=== PATIENT | male | born 1970 | race African-American/Black ===

== ENCOUNTER 2019-08-04 18:39 | Observation (INO) | payer OTHER ==
[~2019-08-04 18:39] MED LIST: Iopamidol-370 76% 500 ML 1 ML ONE
[2019-08-04 19:33] LABS: #Lymphocytes 1.1 thou/uL (1.20-3.40); #Monocytes 0.3 thou/uL (0.11-0.59); #Neutrophils 4.6 thou/uL (1.40-6.50); %Basophils 0.3 % (0.0-1.0); %Eosinophils 0.5 % (0.0-10.0); %Lymphocytes 18.5 % (21.0-51.0); %Monocytes 4.8 % (0.0-10.0); %Neutrophils 75.9 % (42.0-75.0); Hemoglobin 8.3 g/dL (14.0-18.0); Mean Corpuscular HGB CONC 27.5 g/dL (32.0-36.0); Mean Corpuscular Volume 91.1 fL (78.0-98.0); Mean Platelet Volume 9.5 fL (7.4-10.4); Platelet Count 151 thou/uL (130-400); RBC Distribution Width 16.1 % (11.5-14.5); Red Blood Cell (RBC) Count 3.31 mill/uL (4.70-6.10)
--- NOTE | 2019-08-04 19:36 | RAD ---
Chest AP view INDICATION: Cough COMPARISON: Chest radiograph dated April 11, 2012 FINDINGS: Lungs: The lungs are clear Cardiac silhouette: The cardiomediastinal silhouette appears within normal limits. Pulmonary vasculature: Normal Pleural spaces: No pleural effusion or pneumothorax is demonstrated. Upper abdomen: No abnormality seen. Osseous structures: No acute osseous abnormality. Additional findings: None. IMPRESSION: No acute cardiopulmonary abnormality.
[2019-08-04 19:44] LABS: Hypochromia SLIGHT = 6-15 cells (100X) (0-5/hpf); MDiff Complete? YES; Platelet Morphology Comment Appears Adequate
[2019-08-04 20:12] LABS: Calcium 10.2 mg/dL (7.8-10.44); Chloride 100 mmol/L (98-107); Potassium 4.7 mmol/L (3.5-5.1)
[2019-08-04 20:13] LABS: Globulin 4.6 g/dL (2.4-3.5); Glucose 79 mg/dL (70-105); Protein, Total 8.6 g/dL (6.0-8.3)
[2019-08-04 20:14] LABS: Anion Gap 15 mmol/L (10-20); Carbon Dioxide 25 mmol/L (22-29)
[2019-08-04 20:15] LABS: Bilirubin, Total 0.6 mg/dL (0.2-1.2)
[2019-08-04 20:16] LABS: Alkaline Phosphatase 91 U/L (40-110); Calc. Creatinine Clearance 0 mL/min (70-130); Estimated GFR-MDRD Greater than 90
--- NOTE | 2019-08-04 20:16 | CT ---
CT ABDOMEN AND PELVIS WITH IV CONTRAST: 08/04/19 PROVIDED CLINICAL HISTORY: Right lower quadrant and left flank pain. FINDINGS: No comparison. The visualized lung bases are free of significant opacity. There is a large mass involving the entirety of the left hepatic lobe, and extending exophytically ca udally. This measures at least 13.8 cm in craniocaudal dimension x at least 12.6 x 6.8 cm in greatest transverse dimensions. There is somewhat less well defined heterogeneous abnormal density present wi thin the medial segments of the left hepatic lobe and anterior segment of the right hepatic lobe. The re are numerous additional hepatic hypodensities involving the right hepatic lobe as well as a hypere nhancing subcentimeter mass involving the right hepatic lobe. The spleen, pancreas, kidneys and adren al glands demonstrate no significant abnormality. Bilateral renal cysts are seen. The pancreatic body is compressed by the left hepatic lobe mass, as are the stomach and duodenum. There is conspicuous mural thickening involving the urinary bladder with surrounding fat stranding an d mucosa enhancement. There is no bowel dilatation, free fluid or free air apparent. The osseous structures demonstrate no concerning lytic or blastic lesions. There is diffuse fatty inf iltration of essentially all the regional musculature. IMPRESSION: 1. Findings compatible with cystitis. 2. Extensive hepatic abnormalities including large dominant exophytic mass involving the left he patic lobe. This demonstrates CT features most suggestive of a large cavernous hemangioma, though the additional abnormalities involving the right hepatic lobe are incompletely characterized on the basi s of this study. Correlation with nonemergent MRI is recommended for further evaluation. POS: MARTA
[2019-08-04 20:17] LABS: BUN (Urea Nitrogen) 13 mg/dL (8.4-25.7)
[2019-08-04 20:18] LABS: AST (SGOT) 29 U/L (5-34)
[2019-08-04 20:19] LABS: ALT (SGPT) 19 U/L (8-55)
[2019-08-04 20:21] LABS: CKMB 16.5 ng/mL (0-6.6)
[2019-08-04 20:47] LABS: Sodium 135 mmol/L (136-145)
[2019-08-04 21:23] LABS: Bacteria/HPF 3+ HPF (None Seen); Bilirubin Negative (Negative); Blood, Urine 2+ (Negative); Clarity Clear (Clear); Glucose, Urine (Dipstick) Normal (Negative); Leukocyte 500 Leu/uL (Negative); Nitrite Negative (Negative); Protein, Urine (Dipstick) 20 mg/dL (Neg-Trace); RBC/HPF 21-50 HPF (0-3); Squamous Epithelial 0-3 HPF (0-3); WBC/HPF Greater than 50 HPF (0-3)
[2019-08-04 21:25] LABS: Sperm/HPF Rare HPF (None Seen)
[2019-08-04] MEDS ORDERED: Aspirin Chewable 81 MG TAB ONE (21:54)
[2019-08-04 23:08] LABS: Troponin I 0.041 ng/mL (< 0.028)
[2019-08-05 01:34] LABS: Troponin I 0.032 ng/mL (< 0.028)
[2019-08-05 04:06] VITALS: BMI 25.8
[2019-08-05 13:03] LABS: #Lymphocytes 1.3 thou/uL (1.20-3.40); #Monocytes 0.3 thou/uL (0.11-0.59); #Neutrophils 5.4 thou/uL (1.40-6.50); %Basophils 0.2 % (0.0-1.0); %Eosinophils 0.6 % (0.0-10.0); %Lymphocytes 18.8 % (21.0-51.0); %Monocytes 4.6 % (0.0-10.0); %Neutrophils 75.8 % (42.0-75.0); Mean Corpuscular HGB CONC 32.8 g/dL (32.0-36.0); Mean Corpuscular Hemoglobin 29.3 pg (27.0-31.0); Mean Corpuscular Volume 89.4 fL (78.0-98.0); Mean Platelet Volume 7.9 fL (7.4-10.4); Platelet Count 202 thou/uL (130-400); RBC Distribution Width 12.9 % (11.5-14.5); Red Blood Cell (RBC) Count 4.45 mill/uL (4.70-6.10); White Blood Cell (WBC) Count 7.1 thou/uL (4.8-10.8)
[2019-08-05 13:15] LABS: Iron 54 ug/dL (65-175); Iron Binding Capacity, Total 210 mcg/dL (261-462)
[2019-08-05 14:24] LABS: Hemoglobin 12.8 g/dL (14.0-18.0)
[2019-08-05] MEDS ORDERED: FLU VACC QS2019-20(6MOS UP)/PF 60 MCG/0.5 ML SYRINGE IM ONE (21:00)
--- NOTE | 2019-08-05 21:42 | HP ---
CHIEF COMPLAINT: Right lower quadrant flank pain. HISTORY OF PRESENT ILLNESS: Mr. Clayton is a 49-year-old male with past medical history of muscular dystrophy, non-ambulatory, came because of right flank pain and right lower abdominal pain started acutely. He did not have any nausea or vomiting. No fever. No headache. No dizziness. The patient is nonambulatory. The last time he came to see me was a year ago. He is not on any medications. The patient also noticed some dark urine as well. The patient came to the emergency room because of this pain and he was found to have urinary tract infection, possible cystitis, and also had a CAT scan done of the abdomen, which revealed possible mass in the left lobe of liver and some abnormality in the right lobe as well. The patient did complain of some pain in the left flank also. The patient was started on antibiotic and Levaquin and admitted for further evaluation and management. The patient was found to be anemic on initial CBC. PAST MEDICAL HISTORY: 1. Muscular dystrophy. 2. History of cerebrovascular accident. 3. The patient is nonambulatory. PAST SURGICAL HISTORY: Status post tonsillectomy. CURRENT MEDICATIONS: None. ALLERGIES: NKDA. FAMILY HISTORY: Nothing contributory. SOCIAL HISTORY: The patient lives with family. No history of smoking. No history of alcohol. REVIEW OF SYSTEMS: CARDIOVASCULAR: No chest pain. No shortness of breath. RESPIRATORY: No fever or cough. GASTROINTESTINAL: Has abdominal pain right lower quadrant as well as left flank pain. CENTRAL NERVOUS SYSTEM: No headache. No dizziness. PHYSICAL EXAMINATION: GENERAL: The patient is alert, awake, oriented x3. VITAL SIGNS: Temperature 98, pulse 80, respirations 20, blood pressure 100/60. HEENT: Head is normocephalic, atraumatic. Pupils equal and reactive. Nasopharynx is pale and dry. NECK: Supple. No JVD. LUNGS: Bilateral air entry present. No rales, no rhonchi. HEART: S1, S2. Regular. ABDOMEN: Soft, tenderness present. Right lower quadrant area. No guarding. No rigidity. Bowel sounds present. RECTAL: Deferred. CENTRAL NERVOUS SYSTEM: No focal deficits. LABORATORY DATA: CBC shows WBC 6, hemoglobin 8.3, hematocrit 30, platelets 151. Metabolic panel; sodium 135, potassium 4.7, chloride 100, CO2 of 25, urea nitrogen 13, creatinine 0,9, glucose 79. Troponin I 0.031. Urinalysis showed wbc's greater than 15, bacteria 3+. EKG shows normal sinus rhythm, no acute ST-T changes seen. ASSESSMENT: 1. Right lower quadrant pain. 2. Possible cystitis. 3. Left flank pain. 4. Questionable anemia. 5. Liver mass. 6. Elevated troponin rule out myocardial infarction. 7. History of muscular dystrophy. 8. History of cerebrovascular accident. PLAN: 1. Vital signs q.4 hours. 2. Activities, as tolerated. 3. Allergies, NKDA. 4. Hep-Lock. 5. Levaquin 750 mg IV piggyback daily. 6. We will repeat CBC. 7. Diet, regular. 8. GI consult. Job ID: [id number] [facility]
[2019-08-06 05:07] LABS: Albumin 3.1 g/dL (3.5-5.0); Anion Gap 11 mmol/L (10-20); BUN (Urea Nitrogen) 17 mg/dL (8.4-25.7); Bilirubin, Total 0.3 mg/dL (0.2-1.2); Calc. Creatinine Clearance 158 mL/min (70-130); Calcium 9.4 mg/dL (7.8-10.44); Carbon Dioxide 27 mmol/L (22-29); Chloride 104 mmol/L (98-107); Estimated GFR-MDRD Greater than 90; Globulin 3.9 g/dL (2.4-3.5); Glucose 91 mg/dL (70-105); Potassium 4.6 mmol/L (3.5-5.1); Sodium 137 mmol/L (136-145)
[2019-08-06 05:08] LABS: ALT (SGPT) 14 U/L (8-55); AST (SGOT) 23 U/L (5-34); Alkaline Phosphatase 70 U/L (40-110); Eosinophils 1 % (0-10); Hemoglobin 12.3 g/dL (14.0-18.0); Hypochromia SLIGHT = 6-15 cells (100X) (0-5/hpf); Lymphocytes 18 % (21-51); MDiff Complete? YES; Mean Corpuscular HGB CONC 33.5 g/dL (32.0-36.0); Mean Corpuscular Hemoglobin 29.8 pg (27.0-31.0); Mean Corpuscular Volume 88.9 fL (78.0-98.0); Mean Platelet Volume 8.5 fL (7.4-10.4); Monocytes 5 % (0-10); Neutrophil 76 % (42-75); Platelet Count 185 thou/uL (130-400); Platelet Morphology Comment Appears Adequate; Red Blood Cell (RBC) Count 4.13 mill/uL (4.70-6.10); White Blood Cell (WBC) Count 6.9 thou/uL (4.8-10.8)
--- NOTE | 2019-08-06 09:12 | MRI ---
MRI ABDOMEN WITH AND WITHOUT IV CONTRAST: Date: 08/06/2019 HISTORY: Liver masses. CORRELATION: CT scan of 08/04/2019. FINDINGS: Multiple masses are again seen in the liver. These demonstrate T2 hyperintensity and postcontrast per ipheral nodular enhancement with centripetal filling on delayed images and are consistent with reena iomas. The largest of these has an exophytic component and is in the left lobe of the liver measuring 13.8 cm in largest dimension. Multiple gallstones are seen. The spleen, pancreas, and adrenal glands are normal. There are bilatera l renal cysts with low T1, high T2 signal, and no postcontrast enhancement. No free fluid or lymphade nopathy seen. There is no evidence of aneurysmal dilatation of the abdominal aorta. The bone marrow s ignal is normal. IMPRESSION: 1. Liver hemangiomas. 2. Bilateral renal cysts. 3. Cholelithiasis. POS: MARY KAY
--- NOTE | 2019-08-06 09:37 | CON ---
DATE OF CONSULTATION: 08/05/2019 REASON FOR CONSULTATION: Abnormal CAT scan of abdomen. HISTORY OF PRESENT ILLNESS: Mr. Skyler Clayton is a very pleasant 49-year-old fragile looking male with abnormal C T scan of abdomen. He has known to Dr. Jackson for many years for diagnosis of muscular dystrophy probably about 20+ years ago. He is nonfunctional and nonambulatory. He is basically in a wheelchair. He has weakness of both lower extremities and upper extremities. Also appears to have muscular wasting. The patient came to the ER because of left flank pain and some difficulty with urination. The patient was found to have UTI. Underwent evaluation with abdominal CAT scan. Abdominal CAT scan showed a very large left hepatic lobe mass and also a small lesion in right lobe. It was felt the patient mostly has hemangioma. However, the radiologist recommended MRI for better evaluation. The patient tells me he was in [facility] a year ago with severe UTI. He is having some x-rays of CAT scan done, but nobody ever told him something wrong with the liver. Interestingly, he is totally asymptomatic from a liver lesion. He has no right upper abdominal pain, epigastric abdominal pain, nausea, vomiting. The pain is more over the left flank and states the pain has already gone now. The patient's bowel movements are every other day or every third day. Does not take laxatives. No hematochezia. No melena. At the present time, he appears very comfortable and he states the pain is gone and he is feeling better. No relevant history. MEDICAL ILLNESSES: 1. Muscular dystrophy with weakness of both upper and lower extremities. 2. UTI hospitalized in [facility] in 2019. 3. History of tonsillectomy. No other major surgeries. SOCIAL HISTORY: The patient lives with family in [place]. Does not use drugs. No history of smoking or alcohol intake. 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 ALLERGIES: AMOXICILLIN. REVIEW OF SYSTEMS: Remarkable for abdominal pain and some dysuria. These symptoms have resolved at present time. No right upper quadrant abdominal pain, nausea, vomiting. No hematochezia. No melena. Otherwise, history is unremarkable. PHYSICAL EXAMINATION: GENERAL: Revealed a fragile looking male, appears to have muscle wasting and there is no movement in the upper or lower extremities. His handshake is very feeble. He is not able to move his extremities. Appears comfortable. He is awake, alert, and communicative. VITAL SIGNS: Afebrile. Pulse is 82, blood pressure 110/70. HEENT: Conjunctivae are clear. NECK: Supple. No adenitis or thyromegaly noted. CARDIOVASCULAR SYSTEM: First and second heart sounds heard. LUNGS: Clear to auscultation. ABDOMEN: Soft and nondistended. Abdomen is nontender. I do not feel any liver or any masses or right upper quadrant epigastric area. Bowel sounds are audible. LABORATORY DATA: As mentioned earlier, abdominal CAT scan showed a large hepatic mass and also small lesion in the right lobe of the liver. I discussed the case with Dr. Irene Cho and he feels probably hemangiomas in the left lobe of liver. The right lobe lesion could very well be hemangioma, but he recommend to have an MRI done. CBC; WBC is 6000, hemoglobin 8.3, hematocrit 30.1, MCV 91.1, platelet count 151,000 polymorphs 75, lymphocytes 18, monocytes 4. Chemistry panel; lytes are normal. BUN is 13, creatinine of 0.53, glucose 179, calcium 10.2. Liver function tests; AST is 29, ALT 19, alkaline phosphatase 91. Troponin level is high at 0.031 and also CPK-MB 16.5, albumin 4. CLINICAL IMPRESSION: 1. A 49-year-old unfortunate black male with muscular dystrophy and is quadriplegic. The patient presents with symptoms of urinary tract infection and had abdominal CAT scan. The CAT scan showed a hemangioma and some small lesion in right lobe of the liver. Liver function tests are normal. He has no known symptoms of hemangioma. 2. Muscular dystrophy. 3. History of urinary tract infection. RECOMMENDATION: Obtain MRI tomorrow. His overall clinical status is being poor. I am really not sure he needs any aggressive therapy. He most likely had liver hemangioma, I would probably observe him. However, there is a risk of bleeding from hemangioma. Other option is to get a surgical consult in [place], as outpatient. Job ID: [id number] [facility]
--- NOTE | 2019-08-06 15:10 | PRG ---
DATE OF SERVICE: 08/06/2019 SUBJECTIVE: This is a 49-year-old male who came to the ER with left flank pain and some UTI. He had an abdominal CAT scan, which revealed multiple lesions in the right lobe of the liver and also large hemangioma. He underwent MRI as per the radiologist's recommendation. The MRI confirms these are multiple hemangiomas in the right lobe of the liver and also he had large hemangioma over the left lobe of liver and also gallstone. The gallstone is asymptomatic.. The patient really has no specific GI symptoms. No abdominal pain. No nausea. No vomiting. OBJECTIVE: GENERAL: Appears comfortable. VITAL SIGNS: Stable. Afebrile, pulse is 65, blood pressure is 109/67. CARDIOVASCULAR: Within normal limits. LUNGS: Within normal limits. ABDOMEN: Soft. No organomegaly. No tenderness. IMPRESSION: 1. Multiple hemangiomas of the liver. 2. Gallstone. He has no GI symptoms and no acute GI pathology going on. I will sign off from today. 3. From Gastrointestinal standpoint, the patient can be discharged home. Job ID: [id number] [facility]
[2019-08-06] MEDS: Nitrofurantoin Monohyd/M-Cryst 100 MG CAP PO SCH (21:40)
[2019-08-07] MEDS ORDERED: Docusate 100 MG CAP PO SCH (09:00)
[2019-08-07] MEDS: Nitrofurantoin Monohyd/M-Cryst 100 MG CAP PO SCH (09:06)
[2019-08-07 11:30] VITALS: TEMP 97.7
[2019-08-07 16:38] VITALS: BP 114/75
--- NOTE | 2019-08-11 14:09 | EKG ---
Test Reason : Blood Pressure : / mmHG Vent. Rate : 085 BPM Atrial Rate : 085 BPM P-R Int : 128 ms QRS Dur : 104 ms QT Int : 364 ms P-R-T Axes : 003 038 050 degrees QTc Int : 433 ms Sinus rhythm with marked sinus arrhythmia Minimal voltage criteria for LVH, may be normal variant Nonspecific T wave abnormality Abnormal ECG Confirmed by RONEN SILVA DO ([id number]), video tape editor MARCIA CHAVEZ ([id number]) on 08/11/2019 2:09:33 PM Referred By: Confirmed By:RONEN SILVA DO
== END 2019-08-07 20:27 | disposition home or self-care (01) ==
LOC: ERS 18:39 → INTOOBSV 22:05 → 2SE 22:05
PROVIDERS: ADMIT Internal Medicine; ATTEND Internal Medicine
DX: D18.03 Hemangioma of intra-abdominal structures (principal); K80.20 Calculus of gallbladder without cholecystitis without obstruction; R79.89 Other specified abnormal findings of blood chemistry; Z79.2 Long term (current) use of antibiotics; Z86.73 Personal history of transient ischemic attack (TIA), and cerebral infarction without residual deficits; Z90.89 Acquired absence of other organs; Z79.899 Other long term (current) drug therapy; Z88.0 Allergy status to penicillin
CPT/HCPCS: 36415; 71045; 74177; 74183; 80053; 81003; 81015; 82553; 82728; 83540; 83550; 84484; 85025; 87077; 87086; 87186; 90471; 90686; 93005; 96374; G0008; G0378; J1956; Q9967

== ENCOUNTER 2023-02-28 12:00 | Inpatient (IN) | payer OTHER ==
[~2023-02-28 12:00] MED LIST changes: -Iopamidol-370 76% 500 ML 1 ML ONE; +Iopamidol-370 76% 500 ML MDV (1 ML CHARGE) ONE
[2023-02-28] MEDS ORDERED: Morphine 4 MG/ML VIAL ONE (12:44)
[2023-02-28] MEDS ORDERED: Ondansetron PF 4 MG/2 ML Vial ONE (12:44)
[2023-02-28 12:57] LABS: #Eosinphils 0.1 thou/uL (0.0-0.7); #Monocytes 0.3 thou/uL (0.11-0.59); #Neutrophils 6.4 thou/uL (1.40-6.50); %Basophils 0.2 % (0.0-1.0); %Eosinophils 0.7 % (0.0-10.0); %Lymphocytes 19.4 % (21.0-51.0); %Monocytes 3.8 % (0.0-10.0); %Neutrophils 75.5 % (42.0-75.0); Hematocrit 42.8 % (42.0-52.0); Hemoglobin 14.3 g/dL (14.0-18.0); Mean Corpuscular HGB CONC 33.4 g/dL (32.0-36.0); Mean Corpuscular Hemoglobin 29.4 pg (27.0-31.0); Mean Corpuscular Volume 88.1 fl (78.0-98.0); Mean Platelet Volume 10.7 fL (7.4-10.4); Platelet Count 244 10x3/uL (130-400); RBC Distribution Width 14.4 % (11.5-14.5); Red Blood Cell (RBC) Count 4.86 mill/uL (4.70-6.10); White Blood Cell (WBC) Count 8.4 10x3/uL (4.8-10.8)
[2023-02-28 13:25] LABS: ALT (SGPT) 18 U/L (8-55); AST (SGOT) 20 U/L (5-34); Albumin 3.7 g/dL (3.5-5.0); Alkaline Phosphatase 86 U/L (40-110); Anion Gap 16 mmol/L (10-20); BUN (Urea Nitrogen) 12 mg/dL (8.4-25.7); Bilirubin, Total 0.4 mg/dL (0.2-1.2); Calc. Creatinine Clearance 0 mL/min (70-130); Calcium 10.5 mg/dL (7.8-10.44); Carbon Dioxide 27 mmol/L (22-29); Chloride 101 mmol/L (98-107); Estimated GFR 119; Glucose 88 mg/dL (70-105); Lipase 65 U/L (8-78); Potassium 4.4 mmol/L (3.5-5.1); Protein, Total 8.7 g/dL (6.0-8.3); Sodium 140 mmol/L (136-145)
[2023-02-28 13:39] LABS: Bacteria/HPF 4+ HPF (None Seen); Bilirubin Negative (Negative); Blood, Urine 1+ (Negative); CAUTI Indications for Culture Pelvic or flank pain; Clarity Turbid (Clear); Glucose, Urine (Dipstick) Normal (Negative); Ketone, Urine Negative (Negative); Leukocyte 500 Leu/uL (Negative); Nitrite 2+ (Negative); Protein, Urine (Dipstick) 20 mg/dL (Neg-Trace); Specific Gravity, Urine 1.013 (1.002-1.036); Squamous Epithelial 0-3 HPF (0-3); Urobilinogen Normal mg/dL (Less than 2); WBC/HPF Greater than 50 HPF (0-3)
[2023-02-28 13:45] LABS: Urine Culture Reflex Yes Yes
[2023-02-28] MEDS ORDERED: Acetaminophen 500 MG TAB ONE (14:50)
[2023-02-28] MEDS ORDERED: cefTRIAXone (ROCEPHIN) 2 GM VIAL ONE (14:50)
[2023-02-28] MEDS ORDERED: Ondansetron ODT 4 MG TAB PO PRN (17:18)
[2023-02-28] MEDS ORDERED: Ondansetron PF 4 MG/2 ML Vial IVP PRN (17:18)
[2023-02-28] MEDS ORDERED: Acetaminophen 650 MG Suppository PR PRN (17:18)
[2023-02-28] MEDS ORDERED: Nitroglycerin 0.4 MG TAB (25 Tab Bottle) SL PRN (17:22)
[2023-02-28] MEDS ORDERED: Sodium Chloride 0.9% 1,000 ML IV SCH (17:30)
[2023-02-28] MEDS ORDERED: Electrolyte Replacement Protocol FS SCH (17:30)
[2023-02-28 17:36] LABS: Lactic Acid 2.4 mmol/L (0.5-2.2)
[2023-02-28 18:52] VITALS: BMI 25.6
[2023-02-28 19:37] LABS: Troponin I 0.025 ng/mL (< 0.028)
[2023-02-28] MEDS: Atorvastatin Calcium 40 MG TAB PO SCH (20:36)
[2023-02-28 21:04] LABS: Troponin I 0.029 ng/mL (< 0.028)
[2023-03-01 05:29] LABS: Troponin I 0.033 ng/mL (< 0.028)
[2023-03-01 07:32] LABS: Anion Gap 11 mmol/L (10-20); BUN (Urea Nitrogen) 11 mg/dL (8.4-25.7); Calc. Creatinine Clearance 256 mL/min (70-130); Calcium 9.5 mg/dL (7.8-10.44); Carbon Dioxide 25 mmol/L (22-29); Cardiac Risk 2.9 (Less than 4.5); Chloride 105 mmol/L (98-107); Cholesterol 107 mg/dl (< 200 Desired); Estimated GFR 129; Glucose 80 mg/dL (70-105); HDL Cholesterol 37 mg/dL (>60 Neg Risk); LDL Cholesterol, Calculated 55 mg/dL; Potassium 4.2 mmol/L (3.5-5.1); Sodium 137 mmol/L (136-145); Triglycerides 75 mg/dL (Less than 150)
[2023-03-01] MEDS: Aspirin 81 mg Enteric Coated Tablet PO SCH (09:13)
[2023-03-01] MEDS: Vancomycin HCl 125 MG Capsule PO SCH ×3 (09:52→21:20)
[2023-03-01] MEDS: Acetaminophen 325 MG TAB PO PRN ×2 (14:15→21:20)
[2023-03-01 16:56] LABS: #Eosinphils 0.2 thou/uL (0.0-0.7); #Monocytes 0.5 thou/uL (0.11-0.59); #Neutrophils 4.2 thou/uL (1.40-6.50); %Basophils 0.4 % (0.0-1.0); %Eosinophils 3.5 % (0.0-10.0); %Lymphocytes 28.2 % (21.0-51.0); %Monocytes 7.5 % (0.0-10.0); %Neutrophils 60.1 % (42.0-75.0); Hematocrit 35.3 % (42.0-52.0); Hemoglobin 11.7 g/dL (14.0-18.0); Mean Corpuscular HGB CONC 33.1 g/dL (32.0-36.0); Mean Corpuscular Hemoglobin 28.9 pg (27.0-31.0); Mean Corpuscular Volume 87.2 fl (78.0-98.0); Mean Platelet Volume 10.2 fL (7.4-10.4); Platelet Count 190 10x3/uL (130-400); RBC Distribution Width 14.5 % (11.5-14.5); Red Blood Cell (RBC) Count 4.05 mill/uL (4.70-6.10); White Blood Cell (WBC) Count 6.9 10x3/uL (4.8-10.8)
[2023-03-01] MEDS ORDERED: cefTRIAXone\\ROCEPHIN 2 GM in Sodium Chloride 0.9% 100 ML IVPB SCH (18:00)
[2023-03-01] MEDS: Atorvastatin Calcium 40 MG TAB PO SCH (21:20)
[2023-03-02] MEDS: Vancomycin HCl 125 MG Capsule PO SCH ×3 (03:15→15:26)
[2023-03-02] MEDS: Aspirin 81 mg Enteric Coated Tablet PO SCH (08:06)
[2023-03-02] MEDS ORDERED: Sulfameth/Trimethoprim DS 800-160mg TAB PO SCH (09:00)
[2023-03-02] MEDS ORDERED: Bisacodyl 10 MG SUPP PR PRN (13:23)
[2023-03-02 16:05] VITALS: BP 130/70; TEMP 98.8
[2023-03-04] MEDS ORDERED: FLU VACC QS2023-24(6MOS UP)/PF 60 MCG/0.5 ML SYRINGE IM ONE (09:00)
== END 2023-03-02 18:28 | disposition home or self-care (01) | DRG 689 ==
LOC: ERS 12:00 → INTOOBSV 16:06 → 2NO 16:06 → OBSVTOIN 03-01 15:38
PROVIDERS: ADMIT Internal Medicine; ATTEND Internal Medicine
DX: N39.0 Urinary tract infection, site not specified (principal); G82.50 Quadriplegia, unspecified; G71.00 Muscular dystrophy, unspecified; R30.0 Dysuria; D18.03 Hemangioma of intra-abdominal structures; R07.9 Chest pain, unspecified; Z88.2 Allergy status to sulfonamides; Z79.899 Other long term (current) drug therapy; Z90.89 Acquired absence of other organs; Z87.81 Personal history of (healed) traumatic fracture; Z86.73 Personal history of transient ischemic attack (TIA), and cerebral infarction without residual deficits
CPT/HCPCS: 36415; 71045; 71275; 74174; 80048; 80053; 80061; 81001; 83605; 83690; 84439; 84443; 84484; 85025; 87040; 87077; 87086; 87149; 87186; 93005; 94760; 96372; G0378; J0696; J1650; J2270; J2405; J3490; J7050; Q9967